=== PATIENT | male | born 1975 | race Caucasian/White ===

== ENCOUNTER 2024-07-21 08:00 | Outpatient (REF) | payer BC, SELFPAY ==
--- NOTE | ~2024-07-21 | MR_ITS ---
EXAMINATION: MR BRAIN WITHOUT CONTRAST CLINICAL INFORMATION: Transient global amnesia. COMPARISON: 07/30/2017 MRI brain. TECHNIQUE: MRI of the brain was obtained using routine sequences without contrast. In addition to standard sequences, coronal and sagittal FLAIR sequences were also obtained. Examination performed on a 1.5 [place] Siemens high-field unit. FINDINGS: There is no diffusion restriction. There is no intracranial hemorrhage, acute infarction, mass effect, or edema. Ventricles, sulci, and cisterns are normal in size and configuration for patient age. No shift of midline. No abnormal hemosiderin deposition is identified. There is a prominent left frontal DVA (series 11, image 42). No associated signal abnormality. There are a few scattered punctate and minimally confluent foci of white matter T2 hyperintensity in the periventricular, subcortical, and hemispheric deep white matter, nonspecific. No signal abnormality is evident in the hippocampal formations either on T2, FLAIR, or diffusion. They are normal in volume and symmetric and signal bilaterally. Midline structures appear normally formed. The pituitary gland appears normal. Posterior fossa structures appear normal. Cerebellar tonsils are appropriately located. Major flow voids are preserved within the skull base. The globes and orbital contents demonstrate no abnormalities. Paranasal sinuses are clear bilaterally. Nasal septum is midline without spur. The mastoids and tympanic cavities are normally aerated. Extracranial soft tissues demonstrate no abnormalities. No suspicious bone marrow changes are evident. Atlantoaxial joint is normal. MR/MR head/brain wo con IMPRESSION: 1. No intracranial hemorrhage, acute infarction, mass effect, or edema. 2. There is no hippocampal signal abnormality or diffusion abnormality. Hippocampi are normal in volume and symmetric and signal bilaterally. 3. Minimal changes of small vessel ischemia. 4. There is a left frontal DVA incidentally noted. Electronically signed by: Mike Kuo MD 07/21/2024 10:15 AM EDT
== END 2024-07-21 08:01 | disposition home or self-care (01) ==
LOC: HO.MRI 08:00
PROVIDERS: PCP Physician Assistant; Visit Provider Psychiatry & Neurology Neurology
DX: G45.4 Transient global amnesia (principal)
CPT/HCPCS: 70551

== ENCOUNTER → 2024-07-21 08:04 | Outpatient (BNV) | payer BC, SELFPAY | PROVIDERS: PCP Physician Assistant; Visit Provider Radiology Diagnostic Radiology | DX: G45.4 Transient global amnesia (principal) | CPT/HCPCS: 70551 ==

== ENCOUNTER 2024-08-20 14:55 | Outpatient (AMB) | payer BC, SELFPAY ==
--- NOTE | 2024-08-20 15:10 | A.OFFVIS_ITS ---
Intake Visit Reasons: Transient global amnesia Allergies No Known Allergies (No Known Allergies*) Allergy (Unverified 11/06/19 19:30) Medication List - Last Reconciled 08/20/24 by Ethel Marmolejo MD diphenhydramine HCl (Benadryl Allergy) 25 mg PO BEDTIME PRN HPI Comments Details: He has been doing well with no recurrence. 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 and stress related to?his 26-year-old son who has an alcohol addiction problem.? In April 2024, he was going through a particularly difficult time.? During one of his sermons he had periods of lack of recall lasting 5 min. at a time in 2-3 segments during his address.? No one else noticed any problem.? He went back and looked at the recording of his sermon and even though he spoke normally and made sense, he?has small segments where he doesn't remember having said what he said.??It has not recurred since then.? Since that episode, he ?also has some difficulty with word recall.??6 years ago, in April 2018, he had an episode of? transient global amnesia of about 6 hours and was seen in the emergency room at [facility] with a negative workup.? He has recently had an echocardiogram which was negative. 07/28/24 Waking EEG was normal. 07/28/24 MRI brain Minimal changes of small vessel ischemia. [facility] Medical History (Updated 08/20/24 @ 15:19 by Ethel Marmolejo MD) Memory change Transient global amnesia Social History (Updated 08/19/24 @ 14:57 by Sharmila Hernandez MA) Patient Tobacco Use Status: Never used Tobacco Review of Systems Const Details: ?Sleep:? Difficulty getting to sleepdenies.? Difficulty maintaining sleepadmits.? Urge to move legsdenies.? Teeth grindingdenies.? Shouting or Kicking during sleep denies.? Abnormal behavior during sleepdenies.? Excessive sleepdenies.? Snoring admits.? Daytime sleepinessdenies. ???General/Constitutional:? Change in appetitedenies.? Chillsdenies.? Fatiguedenies.? Feverdenies.? Weight gaindenies.? Weight lossdenies. ???Ophthalmologic:? Blurred visiondenies.? Diminished visual acuitydenies. ???ENT:? Stuffinessdenies.? Decreased hearingdenies.? Dry mouthdenies.? Ear paindenies.? Nosebleeddenies.? Ringing in the earsdenies.? Sinus paindenies.? Sore throat denies.? Swollen glandsdenies. ???Endocrine:? Cold intolerancedenies.? Excessive thirstdenies.? Frequent urinationdenies.? Heat intolerancedenies. ???Respiratory:? Shortness of breathdenies.? Chest paindenies.? Coughdenies. ???Breast:? Breast lumpdenies.? Nipple dischargedenies. ???Cardiovascular:? Chest pain at restdenies.? Chest pain with exertiondenies.? Claudicationdenies .? Dizzinessdenies.? Fluid accumulation in the legsdenies.? Irregular heartbeat denies.? Palpitationsadmits. ???Gastrointestinal:? Abdominal paindenies.? Constipationdenies.? Diarrheadenies.? Difficulty swallowingdenies.? Heartburndenies.? Nauseadenies.? Rectal bleedingdenies. ???Hematology:? Easy bruisingdenies.? Prolonged bleedingdenies. ???Genitourinary:? Frequent urinationdenies.? Urgencydenies.? Incontinencedenies.? Erectile Dysfunctiondenies. ???Musculoskeletal:? Neck paindenies.? Back paindenies.? Muscle achesdenies.? Painful jointsdenies.? Sciaticadenies.? Weaknessdenies. ???Podiatric:? Difficulty walkingdenies.? Foot numbnessdenies. ???Neurologic:? Difficulty swallowingdenies.? Balance difficultydenies.? Coordinationnormal.? Difficulty speakingdenies.? Dizzinessdenies.? Faintingdenies.? Gait abnormality denies.? Headachedenies.? Loss of strengthdenies.? Loss of use of extremity denies.? Low back paindenies.? Memory lossadmits.? Seizuresdenies.? Ticsdenies.? Tingling/Numbnessdenies.? Transient loss of visiondenies.? Tremordenies. ???Psychiatric:? Anxietydenies.? Auditory/visual hallucinationsdenies.? Delusionsdenies.? Depressed mooddenies.? Stressorsadmits.? Substance abusedenies.? Suicidal thoughtsdenies. Physical Exam Neuro Other: Abnormal neurological findings:??none.?Mental Status:??alert and oriented X 3,?Normal attention, orientation, memory and affect.?Cranial Nerves:??Pupils are equal, round and reactive to light. Fundoscopy shows normal disc bilaterally. External occular muscles are intact. Visual cole are full, no ptosis. Face is symmetrical, no facial weakness or droop. Facial sensations are normal. Tongue protrudes in midline. Palate elevates symmetrically. Shoulder shrugging is normal..?Motor Examination:??Normal muscle tone, bulk and strength,?No atrophy or fasciculations,?No drift of the extended upper extremities,?Deep tendon reflexes are 2+?,?Plantars are flexor?.?Motor Strength:?Proximal Muscles (out of 5):5Distal Muscles (out of 5):5Neck Flexors (out of 5):5Neck Extensors (out of 5):5Deltoid (out of 5):5Biceps (out of 5):5Triceps (out of 5):5Serratus Anterior (out of 5):5Wrist Extensors (out of 5):5APB (out of 5):5Finger Spread (out of 5):5Ileopsoas (out of 5):5Quadriceps (out of 5):5Hamstrings (out of 5):5Tibialis Anterior (out of 5):5Peronei (out of 5):5EDB (out of 5):5Gastrocnemius (out of 5):5Straight Leg Raising:??90 degrees.?Sensory Exam:??Normal light touch, temperature, pinprick, vibration and joint-position sensations?,?Rhomberg sign is absent.?Coordination:??no ataxia,?no titubation,?[id number], [id number] test and rapid alternating movements were normal.?Gait Exam:??Within normal limits.?Cerebellar Signs:??[id number] and [id number]-[id number] is normal,?no dysdiadochokinesia?.?Extrapyramidal System:??No tremor, rigidity with normal facial expressions,?No bradykinesia, no bradyphrenia. Normal arm swing and posture. No propulsion or retropulsion.?Speech:??Normal,?no dysphasia or dysarthria..? Mini Mental Status Exam: Level of Consciousness:??Alert.?Orientation:??Knows correct year, month, date, day and season,?Knows correct city, county and state. Knows correct location and floor.?Registration:??Able to register 3 objects.?Attention:??Serial 7's performed accurately.?Recall:??Able to recall 3 out of 3 objects.?Language:??Normal spontaneous speech, fluency, repetition,naming, comprehension, reading and writing.?Total Score:??30/30.? General Examination: GENERAL APPEARANCE:??normal,?in no acute distress.?HEAD:??normocephalic,?atraumatic.?EYES:??sclera non-icteri c,?conjunctiva clear.?EARS:??auditory canal clear,?tympanic membrane intact, clear.?NOSE:??no lesions.?ORAL CAVITY:??gums normal,?mucosa moist,?no lesions.?THROAT:??clear.?NECK/THYROID:??no cervical lymphadenopathy,?thyroid normal,?neck supple, full range of motion,?no carotid bruit.?SKIN:??no rashes,?no significant birthmarks.?HEART:??S1, S2 normal,?no murmurs.?LUNGS:??clear anteriorly and posteriorly.?CHEST:??no gross rib deformity,?clear to auscultation.?BACK:??normal exam of spine.?EXTREMITIES:??no edema.?PERIPHERAL PULSES:??normal.?PSYCH:??alert, oriented,?cognitive function intact,?cooperative with exam.? Assessment & Plan Assessment & Plan (1) Transient global amnesia: Comment: in April 2018 for 6 hours Code(s): G45.4 - Transient global amnesia Category: Medical Plan: Has had 2 episodes of TGA 6 yrs apart. Negative work up. He has a small PFO on Echocardiogram. Plan Take aspiring 81mg daily. F/u PRN Coding Level of Care Code Est Pt Level 4 (73103) Diagnoses Transient global amnesia G45.4
== END 2024-08-20 15:21 | disposition home or self-care (01) ==
LOC: HO.HSM 14:55
PROVIDERS: PCP Physician Assistant; Visit Provider Psychiatry & Neurology Neurology
DX: G45.4 Transient global amnesia (principal)
CPT/HCPCS: 99213